=== PATIENT | male | born 1995 | race Caucasian/White ===

== ENCOUNTER 2021-08-18 02:05 | Emergency (ER) | payer SELFPAY ==
[~2021-08-18] VITALS: Ht 185.4 cm; Wt 85.3 kg
--- NOTE | 2021-08-18 02:25 | NUR ---
[id number] TO ER BED 12. AAOX4. NOT IN RESP DISTRESS, BREATHING EVEN AND UNLABORED. BROUGHT IN FOR OVERDOSE. PT WAS FOUND IN A BUS UNCONSCIOUS AND SHALLOW BREATHING. PARAMEDIS NOTED PT WITH PIN POINT PUPILS. GIVEN NARCAN 8MG NASALLY. PT ADMITS TO TAKING A PILL WHICH HE THINKS THAT IT WAS OXYCODE. AWAITING MD FOR EVAL
[2021-08-18 02:41] LABS: BASOPHILS # (AUTO) 0.1 K/uL (0.0-0.2); BASOPHILS % (AUTO) 0.4 % (0.0-2.0); EOSINOPHILS % (AUTO) 2.7 % (0.0-6.0); HEMATOCRIT 44 % (39-51); HEMOGLOBIN 14.7 g/dL (13.5-17.5); LYMPHOCYTES # (AUTO) 2.3 K/uL (0.8-4.8); LYMPHOCYTES % (AUTO) 17.4 % (20.0-44.0); MEAN CORPUSCULAR HGB CONC 33 g/dl (31.0-36.0); MEAN CORPUSCULAR VOLUME 97 fL (80-96); MONOCYTES # (AUTO) 0.8 K/uL (0.1-1.30); NEUTROPHILS # (AUTO) 9.6 K/uL (1.8-8.9); NEUTROPHILS % (AUTO) 73.5 % (43.0-81.0); PLATELET COUNT (AUTO) 228 K/uL (150-450); RED BLOOD CELL COUNT(AUTO) 4.56 MIL/uL (4.5-6.0); WHITE BLOOD COUNT (AUTO) 13.1 K/uL (4.3-11.0)
--- NOTE | 2021-08-18 02:50 | NUR ---
PT IS UNABLE TO URINATE AT THIS TIME. MADE AWARE
[2021-08-18 02:52] LABS: CALCIUM, SERUM 8.4 mg/dL (8.5-10.1); CARBON DIOXIDE 30 mmol/L (21-32); CHLORIDE 101 mmol/L (98-107); CREATININE 1.1 mg/dL (0.6-1.3); GLUCOSE 203 mg/dL (74-106); POTASSIUM 3.7 mmol/L (3.5-5.1); SODIUM SERUM 138 mmol/L (136-145); UREA NITROGEN, BLOOD 11 mg/dL (7-18)
[2021-08-18 02:58] LABS: ALANINE AMINOTRANSFERASE 211 U/L (12-78); ALBUMIN 3.7 g/dL (3.4-5.0); ALKALINE PHOSPHATASE 83 U/L (46-116); ASPARTATE AMINOTRANSFERASE 82 U/L (15-37); BILIRUBIN,DIRECT 0.1 mg/dL (0.0-0.2); BILIRUBIN,TOTAL 0.3 mg/dL (0.2-1.0); TOTAL PROTEIN, SERUM 7.2 g/dL (6.4-8.2)
[2021-08-18 03:05] LABS: ACETAMINOPHEN < 3 ug/ml (10-30); ALCOHOL, BLOOD < 3 mg/dL (0-0)
[2021-08-18 03:30] VITALS: BP 123/78
--- NOTE | 2021-08-18 03:53 | NUR ---
PT WAS REPEATEDLY ASKED FOR URINE AND KEEPS REFUSING TO GIVE URINE. PT WAS NOT IN THE ROOM UPON LAST CHECK. IV WAS PULLED OUT BY THE PT, ANGIO CATH WAS ON THE BED. CHECK IN THE BATHROOM BUT PT WAS NOT THERE. WAS AWARE THAT PT ELOPED.
== END 2021-08-18 04:04 | disposition left against medical advice (07) ==
LOC: ER 02:12
DX: T40.2X1A Poisoning by other opioids, accidental (unintentional), initial encounter (principal); F12.90 Cannabis use, unspecified, uncomplicated; Y92.89 Other specified places as the place of occurrence of the external cause
CPT/HCPCS: 36415; 80048-TC; 80076-TC; 82962-TC; 85025-TC; G0480

== ENCOUNTER 2021-09-09 20:18 | Emergency (ER) | payer SELFPAY ==
[~2021-09-09] VITALS: Ht 185.4 cm; Wt 83.9 kg
[2021-09-09 20:25] VITALS: BP 145/84
--- NOTE | 2021-09-09 20:28 | NUR ---
Patient does not wish to proceed with medical care recommended by Dr. Brizuela. Patient given information related to possible complications, up to and including , which could occur as a result of leaving the hospital at this time. Patient verbalizes understanding of risks involved due to leaving against medical advice. Patient has signed AMA form. Pt AAOX4, Ambulatory with steady gait.
== END 2021-09-09 20:32 | disposition left against medical advice (07) ==
LOC: ER 20:21
DX: T40.1X1A Poisoning by heroin, accidental (unintentional), initial encounter (principal); F12.90 Cannabis use, unspecified, uncomplicated; Y92.89 Other specified places as the place of occurrence of the external cause